=== PATIENT | female | born 1995 | race Caucasian/White ===

== ENCOUNTER 2018-05-14 21:02 | Emergency (ER) | payer MEDICAID, OTHER ==
[~2018-05-14] VITALS: Ht 162.6 cm; Wt 63.0 kg
[2018-05-14 21:07] VITALS: BP 149/88
[2018-05-14] MEDS ORDERED: HYDR28CR14 TOP (21:32)
== END 2018-05-14 21:38 | disposition home or self-care (01) ==
LOC: ER 21:05
DX: L25.9 Unspecified contact dermatitis, unspecified cause (principal)
CPT/HCPCS: 99282